=== PATIENT | male | born 1960 | race Caucasian/White ===

== ENCOUNTER 2016-04-20 22:20 | Emergency (ER) | payer MEDICARE, OTHER ==
[~2016-04-20 22:20] MED LIST: CYCL-289 PO; ESZO3TAB10 PO; OXYC-34 PO; PREG75CA PO
== END 2016-04-20 23:31 | disposition left against medical advice (07) ==
LOC: ER 22:21
DX: Z53.21 Procedure and treatment not carried out due to patient leaving prior to being seen by health care provider (principal)